=== PATIENT | female | born 1955 | race Caucasian/White ===

== ENCOUNTER 2017-11-20 18:56 | Emergency (ER) | payer OTHER ==
[2017-11-20 19:35] VITALS: O2SAT 94
--- NOTE | 2017-11-20 20:16 | EDPHY ---
H & P Stated Complaint: L ring finger laceration Time Seen by Provider: 11/20/17 20:15 HPI/ROS: HPI: This is a 62-year-old female who presents with Chief Complaint: Left ring finger laceration Location: Left ring finger tip Quality: Laceration Duration: Prior to arrival Signs and Symptoms: + bleeding, no radiation, no numbness, no weakness, no tingling, no incontinence, no decreased range of motion, no swelling, no pain Timing: Acute Severity: Mild Context: Patient reports that she was making dinner when she accidentally slipped while using a knife and cut the skin off her left ring finger tip. She reports immediate bleeding and applied a butterfly with direct pressure. She had some mild discomfort but denies any significant pain at this time. Tetanus up-to-date. 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 Denies paresthesias/decreased range of motion/skin color changes. Modifying Factors: Direct pressure Comment: ROS: see HPI Constitutional: No fever, no chills, no weight loss Eyes: No blurred vision Respiratory: No shortness of breath, no cough Cardiovascular: No chest pain Gastrointestinal: No nausea, no vomiting no diarrhea Genitourinary: No dysuria Extremities: No myalgias Neurologic: No weakness, no numbness Skin: No rashes Hematologic: No bruising, no bleeding MEDICAL/SURGICAL/SOCIAL HISTORY: Medical history: Hypothyroidism Surgical history: Denies Social history: Employed. . CONSTITUTIONAL: Elderly, pleasant female, at bedside, awake and alert, no obvious distress HEENT: Atraumatic and normocephalic. NECK: supple, no midline tenderness, flexion 45 degrees, extension 45 degrees, right and left lateral flexion 45 degrees. No meningismus. Cardiovascular: Normal S1/S2, regular rate, regular rhythm, without murmur rub or gallop. PULMONARY/CHEST: Symmetrical and nontender. no crepitus. Clear to auscultation bilaterally. Good air movement. No accessory muscle usage. ABDOMEN: Soft, nondistended, nontender, no ecchymosis. PELVIC: no pain with rocking; bilateral hips flexion 125 degrees, extension 30 degrees, with no pain internal rotation and no pain external rotation. BACK: No midline tenderness, no paraspinous spasm, deep tendon reflexes 2/2, no pain with straight leg raise EXTREMITIES: 2/2 pulses, strength 5/5, left ring fingertip 1 cm skin avulsion; simple; superficial; sparing nail. DIP/PIP/MCP flexion/extension intact with good light touch sensation. no deformities, no clubbing, no cyanosis or edema. NEUROLOGICAL: no focal neuro deficits. GCS 15. Light touch sensation intact. SKIN: Warm and dry, no erythema. no rash. Good capillary refill. Source: Patient Exam Limitations: No limitations - Personal History Current Tetanus Diphtheria and Acellular Pertussis (TDAP): Yes Tetanus Vaccine Date: 2015 - Medical/Surgical History Hx Asthma: No Hx Chronic Respiratory Disease: No Hx Diabetes: No Hx Cardiac Disease: No Hx Renal Disease: No Hx Cirrhosis: No Hx Alcoholism: No Hx HIV/AIDS: No Hx Splenectomy or Spleen Trauma: No Other PMH: hypothyroid - Social History Smoking Status: Never smoked Constitutional: Initial Vital Signs Temperature (C) 36.8 C 11/20/17 19:33 Heart Rate 65 11/20/17 19:33 Respiratory Rate 19 11/20/17 19:33 Blood Pressure 121/73 H 11/20/17 19:33 O2 Sat (%) 94 11/20/17 19:33 O2 Delivery Mode Room Air Allergies/Adverse Reactions: amoxicillin Allergy (Verified 11/20/17 19:32) Home Medications: Medication Instructions Recorded Levothyroxine 11/20/17 [place]-3 Fatty Acids [Fish Oil 1000 11/20/17 mg (*)] Medical Decision Making ED Course/Re-evaluation: Superficial skin avulsion; suturing not indicated No foreign bodies identified Distal digital block provided for anesthesia. Silver nitrate stick x1 used for hemostasis. Copiously irrigated, Xeroform and clean sterile dressing applied. Written and verbal wound instructions provided. No signs of neurovascular compromise/tenting of skin/compartment syndrome/ extremities and joints examined above and below area of concern and are neurovascularly intact. This patient was seen under the supervision of my primary supervising physician. I evaluated care for this patient independently. Differential Diagnosis: Differential diagnosis includes but is not limited to laceration, contusion, avulsion, nerve injury, tendon injury. Departure - Departure Disposition: Home, Routine, Self-Care Clinical Impression: Avulsion of skin Condition: Good Instructions: Skin Avulsion (ED) Additional Instructions: Keep the dressing dry and in place for 48 hours. After 48 hours, you may remove the dressing; wash the site daily with mild soap and water; then pat dry; apply [id number] topical antibiotic ointment like neomycin daily and then clean sterile dressing until fully healed. Take Tylenol 650 mg every 4 hours and/or Ibuprofen 600 mg every 8 hours with food as needed for pain. Apply ice for 30 minutes at a time; 2-3 times per day for the next 1-2 days. Follow up with [facility] in 7-10 days at which time they will evaluate and recommend with you if conservative management versus further adjuvant therapy is indicated. Referrals: HAYDEN ORTA [Primary Care Provider] - As per Instructions Jimbo Mendez MD [Medical Doctor] - As per Instructions
[2017-11-20] MEDS ORDERED: SILVER NITRATE APPLICATOR 1 APPL TP ONE (20:46)
[2017-11-20 21:14] VITALS: BP 103/66; PULSE 54; RESP 16; TEMP 98.1
== END 2017-11-20 21:13 | disposition home or self-care (01) ==
DX: S61.205A Unspecified open wound of left ring finger without damage to nail, initial encounter (principal); W26.0XXA Contact with knife, initial encounter